=== PATIENT | female | born 1980 | race African-American/Black ===

== ENCOUNTER 2016-11-06 19:22 | Emergency (ER) | payer OTHER ==
[~2016-11-06] VITALS: Ht 170.2 cm; Wt 86.0 kg
[~2016-11-06 19:22] MED LIST: AMOX875 PO; CEPALOZ SUCK-ON; METR-1 PO; MUCI600T PO; PYRI200T4 PO
[2016-11-06 19:23] VITALS: BP 191/84; PULSE 88; RESP 18; TEMP 98.8; O2SAT 100
--- NOTE | 2016-11-06 20:14 | PD ---
HPI Chief Complaint: Fall Time Seen by Provider: 20:12 Travel History International Travel<30 days: No Contact w/Intl Traveler<30days: No Traveled to known affect area: No History of Present Illness HPI 36-year-old female presents to the emergency department for evaluation after a slip and fall at occurred today. Patient states she was at [facility] when she slipped in a pothole lanced on her right side. She denies hitting her head or LOC. Patient complains of pain to her right side. She reports no chronic medical problems and takes no prescribed medications. She denies any chance of . Patient is ambulatory without difficulty. PFS Past Medical History Diminished Hearing: No Hypertension: Yes : 1 Para: 1 Social History Alcohol Use: Yes (2X MONTH) Tobacco Use: No Substance Use: No Allergies-Medications (Allergen,Severity, Reaction): Coded Allergies: No Known Allergies (Verified , 11/06/16) Reported Meds & Prescriptions Reported Meds & Active Scripts Active Flagyl (Metronidazole) 500 Mg Tab 500 Mg PO BID Pyridium (Phenazopyridine HCl) 200 Mg Tab 200 Mg PO Q8H PRN 3 Days Cepacol (Benzocaine/Menthol) 1 Lozg Lozg 1 Lozg SUCK-ON DIRECTED PRN Amoxil (Amoxicillin) 875 Mg Tab 875 Mg PO BID 10 Days Reported Mucinex (Guaifenesin) Unknown Strength Tabcr Unknown Dose PO DIRECTED Review of Systems Except as stated in HPI: all other systems reviewed are Neg Physical Exam Narrative GENERAL: Well-nourished, well-developed female patient, ambulatory with a steady gait. Afebrile. SKIN: Focused skin assessment warm/dry. No lacerations or abrasions. HEAD: Normocephalic. Atraumatic. ENT: Mucosa pink and moist. No erythema or exudates. No uvular edema. No uvular , palatal, or tonsillar deviation. Airway patent. Nasal turbinates appear normal without nasal blood, purulent drainage or septal hematoma. Bilateral tympanic membranes are clear without erythema or perforation. EYES: No scleral icterus. No injection or drainage. NECK: Supple, trachea midline. No JVD or lymphadenopathy. CARDIOVASCULAR: Regular rate and rhythm without murmurs, gallops, or rubs. RESPIRATORY: Breath sounds equal bilaterally. No accessory muscle use. Lungs sounds are clear to auscultation. GASTROINTESTINAL: Abdomen soft, non-tender, nondistended. MUSCULOSKELETAL: No cyanosis, or edema. Patient has tenderness over right chest wall and right shoulder. BACK: No obvious deformity. No CVA tenderness. Data Data Last Documented VS Vital Signs Date Time Temp Pulse Resp B/P Pulse Ox O2 Delivery O2 Flow Rate FiO2 11/06/16 20:32 163/93 11/06/16 19:23 98.8 88 18 100 Orders Chest, Single Ap (11/06/16 ) Shoulder, Complete (>2vws) (11/06/16 ) Ketorolac Inj (Toradol Inj) (11/06/16 20:15) Orphenadrine Inj (Norflex Inj) (11/06/16 20:15) MDM Medical Decision Making Medical Screen Exam Complete: Yes Emergency Medical Condition: Yes Medical Record Reviewed: Yes Interpretation(s) Last Impressions Shoulder X-Ray 11/06/16 0000 Signed Impressions: Service Date/Time: Sunday, November 06, 2016 20:31 - CONCLUSION: No acute disease. Dainel Peters MD Chest X-Ray 11/06/16 0000 Signed Impressions: Service Date/Time: Sunday, November 06, 2016 20:29 - CONCLUSION: No acute disease. Daniel Peters MD Differential Diagnosis Contusion versus fracture versus sprain versus strain Narrative Course 36-year-old female presents to the emergency department for evaluation after a slip and fall [employer]. Patient appears well on exam. X-ray of the chest and x- ray of the right shoulder ordered and pending. Patient is given Toradol 60 mg IM and Norflex 60 mg IM. Chest x-ray shows no acute disease. X-ray right shoulder shows no acute disease. Patient will be discharged with a prescription for ibuprofen and Robaxin. She is encouraged to follow up with her primary care physician. Patient verbalizes agreement and understanding. The patient was discharged in stable condition with instructions, including return instructions and follow up instructions. Diagnosis Primary Impression: Chest wall contusion Qualified Code: S20.211A - Chest wall contusion, right, initial encounter Additional Impression: Right shoulder strain Qualified Code: S46.911A - Right shoulder strain, initial encounter Referrals: Primary Care Physician call for appointment Patient Instructions: Contusion in Adults (ED), General Instructions, Shoulder Pain (ED) Departure Forms: Tests/Procedures, Work Release Enter return to work date: November 08, 2016 Additional Instructions: Take ibuprofen as instructed as needed with food for pain. Take Robaxin as instructed as needed. Ice for 20 minutes 4-5 times daily. Follow-up with your primary care physician. Return to the emergency department for any acute worsening of symptoms. Med/Other Pt SpecificInfo: Prescription(s) given Scripts Methocarbamol (Robaxin)750 Mg [id number] Mg PO TID PRN (MUSCLE SPASM) #21 TAB Ref 0 Prov:Becki Yousif 11/06/16 Ibuprofen 600 Mg [id number] Mg PO TID PRN (PAIN SCALE 1 TO 10) #21 TAB Ref 0 Prov:Becki Yousif 11/06/16 Disposition: 01 DISCHARGE HOME Condition: Stable Becki Yousif November 06, 2016 20:14
[2016-11-06] MEDS ORDERED: KETOROLAC TROMETHAMINE 60 MG/2 ML (IM) VIAL IM ONE (20:15)
[2016-11-06] MEDS ORDERED: ORPHENADRINE INJ 60 MG/2 ML AMP IM ONE (20:15)
[2016-11-06 20:32] VITALS: BP 163/93
--- NOTE | 2016-11-06 20:47 | RADRPT ---
EXAM DATE/TIME: 11/06/2016 20:29 [facility] COMPARISON: No previous studies available for comparison. INDICATIONS : Right side chest pain. Patient states she slipped and fell in [employer] on her right side. MEDICAL HISTORY : None. SURGICAL HISTORY : None. ENCOUNTER: Initial ACUITY: 1 day PAIN SCORE: 10/10 LOCATION: Bilateral chest FINDINGS: A single view of the chest demonstrates the lungs to be symmetrically aerated without evidence of mas s, infiltrate or effusion. The cardiomediastinal contours are unremarkable. Osseous structures are intact. CONCLUSION: No acute disease. Daniel Peters MD on November 06, 2016 at 20:44 Board Certified Radiologist. This report was verified electronically.
--- NOTE | 2016-11-06 20:59 | RADRPT ---
EXAM DATE/TIME: 11/06/2016 20:31 [facility] COMPARISON: No previous studies available for comparison. INDICATIONS : Right shoulder pain. Patient states she slipped and fell in [employer] on her right side. MEDICAL HISTORY : None. SURGICAL HISTORY : None. ENCOUNTER: Initial ACUITY: 1 day PAIN SCORE: 9/10 LOCATION: Right shoulder. FINDINGS: Multiple view examination of the right shoulder demonstrates no evidence of fracture or dislocation. The glenohumeral and acromioclavicular joints are maintained. There is normal range of motion betwe en internal and external rotation. Bony mineralization is normal. CONCLUSION: No acute disease. Daniel Peters MD on November 06, 2016 at 20:57 Board Certified Radiologist. This report was verified electronically.
[2016-11-06] MEDS ORDERED: IBUP-232 PO (21:08)
[2016-11-06] MEDS ORDERED: ROBA750T PO (21:08)
== END 2016-11-06 21:35 | disposition home or self-care (01) ==
LOC: NEPC 19:22
DX: S20.219A Contusion of unspecified front wall of thorax, initial encounter (principal); S46.911A Strain of unspecified muscle, fascia and tendon at shoulder and upper arm level, right arm, initial encounter; I10 Essential (primary) hypertension; W01.0XXA Fall on same level from slipping, tripping and stumbling without subsequent striking against object, initial encounter; Y92.481 Parking lot as the place of occurrence of the external cause
CPT/HCPCS: 71010; 73030; 96372; 99284; J1885; J2360

== ENCOUNTER 2017-03-09 08:25 | Emergency (ER) | payer SELFPAY ==
[~2017-03-09] VITALS: Ht 170.2 cm; Wt 86.0 kg
[~2017-03-09 08:25] MED LIST changes: +IBUP-232 PO; +ROBA750T PO
[2017-03-09 08:27] VITALS: BP 146/90; PULSE 74; RESP 20; TEMP 98.1; O2SAT 100
[2017-03-09 09:08] LABS: BACTERIA, URINE RARE /hpf; BLOOD, URINE SMALL (NEG); COMMENT (UR) CULT NOT INDICATED; CULTURE IF INDICATED CULT NOT INDICATED; GLUCOSE,URINE NEG (NEG); KETONE, URINE NEG (NEG); MUCUS URINE FEW /lpf (OCC); NITRITE,URINE NEG (NEG); SQUAMOUS EPITHELIAL CELL URINE 1 /hpf (0-5); URINE COLOR YELLOW (YELLW/STRAW)
[2017-03-09] MEDS ORDERED: PHEN0.4T PO (10:46)
--- NOTE | 2017-03-09 10:46 | PD ---
HPI Chief Complaint: Complaint Time Seen by Provider: 09:38 Travel History International Travel<30 days: No Contact w/Intl Traveler<30days: No Traveled to known affect area: No History of Present Illness HPI This is a 36-year-old female who presents to the emergency department with dysuria has been going on intermittently for 2 months. She says it pozo immediately after she urinates. She denies any fevers or chills, denies any abdominal pain, back pain or vomiting. Her symptoms are moderate severity, intermittent and not improve with cranberry juice. She is sexually active with females only and denies any vaginal discharge. PFSH Past Medical History Cardiovascular Problems: Yes Diminished Hearing: No Hypertension: Yes Immunizations Current: Yes ?: Not LMP: 02/25/2017 : 1 Para: 1 Past Surgical History Surgical History: No Previous Surgery Social History Alcohol Use: Yes (OCCASIONALLY) Tobacco Use: No Substance Use: Yes (MARIJUANA) Allergies-Medications (Allergen,Severity, Reaction): Coded Allergies: No Known Allergies (Verified , 03/09/17) Reported Meds & Prescriptions Reported Meds & Active Scripts Active No Active Prescriptions or Reported Medications Review of Systems Except as stated in HPI: all other systems reviewed are Neg Physical Exam Narrative GENERAL:Well appearing, no acute distress SKIN: Focused skin assessment warm and dry. HEAD: Atraumatic. Normocephalic. EYES: Pupils equal and round. No injection or drainage. ENT: Moist mucous membranes NECK: Trachea midline. CARDIOVASCULAR: Regular rate and rhythm. No murmur appreciated. RESPIRATORY: Clear to auscultation. Breath sounds equal bilaterally. GASTROINTESTINAL: Abdomen soft, non-tender, nondistended. 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 NEUROLOGICAL: Awake and alert. No obvious cranial nerve deficits. Moving all extremities.. PSYCHIATRIC: Appropriate mood and affect; insight and judgment normal. Data Data Last Documented VS Vital Signs Date Time Temp Pulse Resp B/P (MAP) Pulse Ox O2 Delivery O2 Flow Rate FiO2 03/09/17 08:27 98.1 74 20 146/90 (108) 100 Room Air Orders Orders Urinalysis - C+S If Indicated (03/09/17 08:34) Ed Urine Pregnancytest Poc (03/09/17 08:41) Wet Prep Profile (03/09/17 09:50) Gc And Chlamydia Pcr (03/09/17 09:50) Labs Laboratory Tests Test 03/09/17 07:30 03/09/17 10:00 Urine Color YELLOW Urine Turbidity CLEAR Urine pH 6.0 Urine Specific [place] 1.028 Urine Protein TRACE mg/dL Urine Glucose (UA) NEG mg/dL Urine Ketones NEG mg/dL Urine Occult Blood SMALL Urine Nitrite NEG Urine Bilirubin NEG Urine Urobilinogen LESS THAN 2.0 MG/DL Urine Leukocyte Esterase NEG Urine RBC 6 /hpf Urine WBC 1 /hpf Urine Squamous Epithelial Cells 1 /hpf Urine Bacteria RARE /hpf Urine Mucus FEW /lpf Microscopic Urinalysis Comment CULT NOT INDICATED Clue Cells (Wet Prep) NONE SEEN Vaginal Trichomonas (Wet Prep) NONE SEEN Vaginal Yeast (Wet Prep) NONE SEEN MDM Medical Decision Making Medical Screen Exam Complete: Yes Emergency Medical Condition: Yes Differential Diagnosis Urinary tract infection, yeast infection, pelvic inflammatory disease, interstitial cystitis Narrative Course This is a 36-year-old female who presents to the emergency department with dysuria that's been going on for 2 months. She has a benign exam. Urinalysis is negative for infection and shows a scant amount of blood. I advised her she needs to follow-up with the urologist. She is started on Pyridium. Diagnosis Primary Impression: Dysuria Referrals: Jose Mock MD Patient Instructions: General Instructions Additional Instructions: If you develop fevers, chills, severe abdominal pain or vomiting return to the emergency room. You have a small amount of blood in your urine. It's very important that he follow-up with the urologist given your symptoms. Med/Other Pt SpecificInfo: Prescription(s) given Scripts Phenazopyridine (Pyridium) 100 Mg Tab 100 MG PO Q8H Y for DYSURIA, #6 TAB 0 Refills Prov: Kiki Landers MD 03/09/17 Disposition: 01 DISCHARGE HOME Condition: Stable Kiki Landers MD Mar 09, 2017 10:46
[2017-03-09 12:36] LABS: CHLAMYDIA PCR NOT DETECTED (NOT DETECT); NEISSERIA PCR NOT DETECTED (NOT DETECT)
== END 2017-03-09 10:55 | disposition home or self-care (01) ==
LOC: NEPD 08:25
DX: R30.0 Dysuria (principal)
CPT/HCPCS: 81001; 84703; 87210; 87491; 87591; 99283